=== PATIENT | male | born 1960 | race Caucasian/White ===

== ENCOUNTER 2019-03-13 16:07 | Emergency (ER) | payer OTHER ==
[2019-03-13 16:56] LABS: ADD MAN DIFF? NO
[2019-03-13 16:58] LABS: WHITE BLOOD COUNT 5.5 10^3/ul (4.8-10.8)
[2019-03-13 16:58] LABS: BASOPHIL # 0.1 10^3/ul (0.0-0.1); BASOPHILS % 0.9 % (0.0-2.0); EOSINOPHILS # 0.1 10^3/ul (0.0-0.5); HEMATOCRIT 45.1 % (42.0-52.0); HEMOGLOBIN 15.4 g/dl (14.0-18.0); LYMPHOCYTES # 1.5 10^3/ul (0.8-2.9); LYMPHOCYTES % 28.2 % (15.0-51.0); MEAN CORPUSCULAR HEMOGLOBIN 31.3 pg (29.0-33.0); MEAN CORPUSCULAR HGB CONC 34.1 g/dl (32.0-37.0); MEAN CORPUSCULAR VOLUME 91.7 fl (82.0-101.0); MEAN PLATELET VOLUME 9.3 fl (7.4-10.4); MONOCYTE # 0.6 10^3/ul (0.3-0.9); MONOCYTES % 10.8 % (0.0-11.0); NEUTROPHIL # 3.2 10^3/ul (1.6-7.5); NEUTROPHILS % 57.9 % (39.0-77.0); PLATELET COUNT 136 10^3/UL (140-415); POSITIVE DIFF @See below; RED BLOOD COUNT 4.92 10^6/ul (4.70-6.10); RED CELL DISTRIBUTION WIDTH 13.2 % (11.5-14.5)
[2019-03-13 17:23] LABS: ALANINE AMINOTRANSFERASE 371 IU/L (13-69); ALBUMIN 3.6 g/dl (3.3-4.9); ALBUMIN/GLOBULIN RATIO 1.16; ALKALINE PHOSPHATASE 128 IU/L (42-121); ANION GAP 7 (5-13); ASPARTATE AMINO TRANSFERASE 346 IU/L (15-46); BILIRUBIN,INDIRECT 0.5 mg/dl (0-1.1); BILIRUBIN,TOTAL 0.5 mg/dl (0.2-1.3); BLOOD UREA NITROGEN 22 mg/dl (7-20); CALCIUM 9.1 mg/dl (8.4-10.2); CARBON DIOXIDE 26 mmol/L (21-31); CHLORIDE 106 mmol/L (97-110); CREATININE 0.93 mg/dl (0.61-1.24); Estimated GFR > 60 mL/min (>60); GLUCOSE 165 mg/dl (70-220); POTASSIUM 4.3 mmol/L (3.5-5.1); SODIUM 139 mmol/L (135-144); TOTAL PROTEIN 6.7 g/dl (6.1-8.1)
[2019-03-13 17:35] LABS: B-TYPE NATRIURETIC PEPTIDE 207 PG/ML (0-125); TROPONIN-I < 0.012 ng/ml (0.000-0.120)
[2019-03-13] MEDS ORDERED: ONDANSETRON 4 MG INJ IV (19:18)
[2019-03-13] MEDS: KETAMINE HCL (50 MG/ML) 1ml syringe IV (20:20)
[2019-03-13] MEDS: ONDANSETRON 4 MG INJ IV (20:21)
[2019-03-13] MEDS: SOD CHLORIDE 0.9% 100 ML (20:30)
[2019-03-13] MEDS: IOHEXOL 100 ML (20:30)
[2019-03-13 20:34] LABS: TROPONIN-I < 0.012 ng/ml (0.000-0.120)
== END 2019-03-13 22:20 | disposition home or self-care (01) ==
LOC: E/R 16:07
DX: R07.9 Chest pain, unspecified (principal); R91.1 Solitary pulmonary nodule
CPT/HCPCS: 71045; 71275; 74176; 80053; 83880; 84484; 85025; 93005; 96374; 96375; 99285-25

== ENCOUNTER 2019-04-28 19:01 | Emergency (ER) | payer SELFPAY | END 2019-04-28 21:53 | disposition left against medical advice (07) | LOC: E/R 19:01 | DX: Z53.21 Procedure and treatment not carried out due to patient leaving prior to being seen by health care provider (principal) ==